=== PATIENT | female | born 1995 | race Caucasian/White ===

== ENCOUNTER 2016-03-26 16:30 | Emergency (ER) | payer OTHER, MEDICAID ==
[~2016-03-26] VITALS: Ht 162.6 cm; Wt 50.0 kg
[2016-03-26 16:43] VITALS: BP 109/83; PULSE 85; TEMP 97.5
[2016-03-26] MEDS ORDERED: ZANAFLEX2 MG PO (18:38)
== END 2016-03-26 18:59 | disposition home or self-care (01) ==
LOC: COL.ER 16:30
DX: S39.012A Strain of muscle, fascia and tendon of lower back, initial encounter (principal); X50.0XXA Overexertion from strenuous movement or load, initial encounter
CPT/HCPCS: J1885; J2360

== ENCOUNTER 2016-05-15 06:42 | Emergency (ER) | payer OTHER, MEDICAID ==
[~2016-05-15] VITALS: Ht 162.6 cm; Wt 52.3 kg
[~2016-05-15 06:42] MED LIST: ZANAFLEX2 MG PO
[2016-05-15 06:44] VITALS: BP 115/94; TEMP 98.2
[2016-05-15] MEDS ORDERED: CELEXA10 MG PO (06:48)
[2016-05-15] MEDS ORDERED: ATARAX 25MG25 MG/TAB PO (06:49)
[2016-05-15] MEDS ORDERED: MOTRIN 200200 MG/TAB PO (07:34)
[2016-05-15] MEDS ORDERED: FLEXERIL 1010 MG/TAB PO (07:34)
[2016-05-15 07:54] VITALS: PULSE 78
== END 2016-05-15 07:53 | disposition home or self-care (01) ==
LOC: COL.ER 06:42
DX: M54.6 Pain in thoracic spine (principal); M54.2 Cervicalgia
CPT/HCPCS: J1885

== ENCOUNTER 2016-05-16 17:41 | Emergency (ER) | payer OTHER, MEDICAID ==
[~2016-05-16] VITALS: Ht 162.6 cm; Wt 52.3 kg
[~2016-05-16 17:41] MED LIST changes: +ATARAX 25MG25 MG/TAB PO; +CELEXA10 MG PO; +FLEXERIL 1010 MG/TAB PO; +MOTRIN 200200 MG/TAB PO
[2016-05-16 17:43] VITALS: TEMP 98
[2016-05-16 18:37] LABS: PH 5 (5-8); URINE APPEARANCE Hazy; URINE BACTERIA None Seen /hpf; URINE BILIRUBIN Negative (NEGATIVE); URINE BLOOD Negative (NEGATIVE); URINE COLOR Yellow; URINE GLUCOSE Negative (NEGATIVE); URINE KETONE Trace (NEGATIVE); URINE RBC 0-2 /hpf; URINE UROBILINOGEN Negative (NEGATIVE)
[2016-05-16 19:12] VITALS: BP 122/59; PULSE 89
== END 2016-05-16 19:12 | disposition home or self-care (01) ==
LOC: COL.ER 17:41
PROVIDERS: Nurse Practitioner
DX: M54.5 Low back pain (principal); M54.2 Cervicalgia; G89.29 Other chronic pain